=== PATIENT | male | born 1945 | race Native Hawaiian/Other Pacific Islander ===

== ENCOUNTER 2016-10-29 10:56 | Outpatient (CLI) | payer OTHER ==
[~2016-10-29 10:56] MED LIST: AMLO2.5T PO; DIGOXIN0.25 MG PO; EAC PO; LORAZEPAM1 MG PO; LORTAB PO; NEXIUM40 M1 PO; SUCR1SUS PO; TRAZ50TA36 PO
== END 2016-10-29 20:04 | disposition home or self-care (01) ==
LOC: RAD 10:56
DX: R06.02 Shortness of breath (principal)

== ENCOUNTER 2016-11-27 13:35 | Outpatient (CLI) | payer OTHER ==
[2016-11-27 15:11] LABS: PLATELET COUNT 187 K/uL (142-355)
[2016-11-27 16:09] LABS: POTASSIUM 3.9 mmol/L (3.6-5.2); SODIUM 137 mmol/L (136-145)
== END 2016-11-27 19:23 | disposition home or self-care (01) ==
LOC: LABW 13:35
PROVIDERS: Internal Medicine
DX: I48.91 Unspecified atrial fibrillation (principal); E78.2 Mixed hyperlipidemia; M79.1 Myalgia; Z12.5 Encounter for screening for malignant neoplasm of prostate; E78.00 Pure hypercholesterolemia, unspecified; R73.09 Other abnormal glucose
CPT/HCPCS: 36415; 80048; 80061; 80076; 80162; 82550; 84153; 84443; 85027

== ENCOUNTER 2016-12-17 10:42 | Outpatient (CLI) | payer OTHER | END 2016-12-17 19:21 | disposition home or self-care (01) | LOC: CT 10:42 | DX: R51 Headache (principal) ==

== ENCOUNTER 2016-12-31 11:13 | Outpatient (CLI) | payer OTHER | END 2016-12-31 12:13 | disposition home or self-care (01) | LOC: LABW 11:13 | DX: R10.84 Generalized abdominal pain (principal) | CPT/HCPCS: 87045; 87205; 87328; 87329; 87493; 87798; 87899 ==

== ENCOUNTER 2017-02-03 11:53 | Emergency (ER) | payer OTHER ==
[~2017-02-03] VITALS: Ht 180.3 cm; Wt 78.5 kg
[2017-02-03 12:33] LABS: PLATELET COUNT 180 K/uL (142-355)
[2017-02-03 12:39] LABS: POTASSIUM 4.3 mmol/L (3.6-5.2); SODIUM 139 mmol/L (136-145)
[2017-02-03 15:00] VITALS: BP 129/82; TEMP 97.7
== END 2017-02-03 14:57 | disposition home or self-care (01) ==
LOC: ED 11:53
DX: R42 Dizziness and giddiness (principal); I48.91 Unspecified atrial fibrillation; W01.10XA Fall on same level from slipping, tripping and stumbling with subsequent striking against unspecified object, initial encounter; Y92.89 Other specified places as the place of occurrence of the external cause
CPT/HCPCS: 36415; 80053; 85027; 93005; 99283

== ENCOUNTER 2017-02-17 21:00 | Emergency (ER) | payer OTHER ==
[~2017-02-17] VITALS: Ht 180.3 cm; Wt 78.5 kg
[2017-02-17 23:19] LABS: PLATELET COUNT 138 K/uL (142-355)
[2017-02-17 23:27] LABS: POTASSIUM 3.9 mmol/L (3.6-5.2); SODIUM 138 mmol/L (136-145)
[2017-02-18 00:06] VITALS: BP 138/88; TEMP 97.5
== END 2017-02-18 00:07 | disposition home or self-care (01) ==
LOC: ED 21:00
DX: K80.80 Other cholelithiasis without obstruction (principal); R10.84 Generalized abdominal pain
CPT/HCPCS: 36415; 80053; 82150; 83690; 85027; 99283

== ENCOUNTER 2017-03-13 07:49 | Outpatient (CLI) | payer OTHER | END 2017-03-13 19:03 | disposition home or self-care (01) | LOC: RAD 07:49 | DX: R13.14 Dysphagia, pharyngoesophageal phase (principal) ==

== ENCOUNTER 2017-03-15 10:00 | Outpatient (CLI) | payer OTHER | END 2017-03-15 11:00 | disposition home or self-care (01) | LOC: LABW 10:00 | DX: G25.0 Essential tremor (principal); G62.89 Other specified polyneuropathies | CPT/HCPCS: 82607; 84443; 85651; 86039 ==

== ENCOUNTER 2017-04-17 09:35 | Outpatient (CLI) | payer OTHER | END 2017-04-17 19:12 | disposition home or self-care (01) | LOC: CT 09:35 | DX: R07.0 Pain in throat (principal) ==

== ENCOUNTER 2017-05-31 08:45 | Outpatient (CLI) | payer OTHER | END 2017-05-31 10:00 | disposition home or self-care (01) | LOC: US 08:45 | DX: N28.89 Other specified disorders of kidney and ureter (principal); K80.80 Other cholelithiasis without obstruction ==

== ENCOUNTER 2017-09-05 13:22 | Emergency (ER) | payer OTHER ==
[~2017-09-05] VITALS: Ht 177.8 cm; Wt 83.5 kg
[2017-09-05 15:18] VITALS: BP 152/90; TEMP 98.1
== END 2017-09-05 15:19 | disposition home or self-care (01) ==
LOC: ED 13:22
DX: S80.02XA Contusion of left knee, initial encounter (principal); S50.02XA Contusion of left elbow, initial encounter; S43.492A Other sprain of left shoulder joint, initial encounter; W18.39XA Other fall on same level, initial encounter; Y92.89 Other specified places as the place of occurrence of the external cause
CPT/HCPCS: 99283

== ENCOUNTER 2017-09-09 20:42 | Emergency (ER) | payer OTHER ==
[~2017-09-09] VITALS: Ht 177.8 cm; Wt 83.9 kg
[2017-09-09 22:36] VITALS: BP 168/90; TEMP 97.8
== END 2017-09-09 22:37 | disposition home or self-care (01) ==
LOC: ED 20:42
DX: I48.91 Unspecified atrial fibrillation (principal); I63.9 Cerebral infarction, unspecified; I10 Essential (primary) hypertension; I67.82 Cerebral ischemia; S60.512A Abrasion of left hand, initial encounter; S60.511A Abrasion of right hand, initial encounter; W18.39XA Other fall on same level, initial encounter; Y92.89 Other specified places as the place of occurrence of the external cause
CPT/HCPCS: 99282

== ENCOUNTER 2017-09-10 15:35 | Outpatient (CLI) | payer OTHER | END 2017-09-10 21:43 | disposition home or self-care (01) | LOC: LABW 15:35 | DX: N40.0 Benign prostatic hyperplasia without lower urinary tract symptoms (principal) | CPT/HCPCS: 36415; 84153 ==

== ENCOUNTER 2018-01-02 08:32 | Outpatient (CLI) | payer OTHER ==
[2018-01-02 09:56] LABS: POTASSIUM 4.2 mmol/L (3.6-5.2)
== END 2018-01-02 22:45 | disposition home or self-care (01) ==
LOC: LABW 08:32
PROVIDERS: Internal Medicine Cardiovascular Disease
DX: I10 Essential (primary) hypertension (principal); I50.9 Heart failure, unspecified; I48.2 Chronic atrial fibrillation
CPT/HCPCS: 36415; 80048; 80061; 83880; 84436; 84443; 84479

== ENCOUNTER 2018-02-03 09:17 | Outpatient (CLI) | payer OTHER | END 2018-02-03 18:52 | disposition home or self-care (01) | LOC: US 09:17 | DX: K80.80 Other cholelithiasis without obstruction (principal) ==

== ENCOUNTER 2018-02-05 14:53 | Outpatient (CLI) | payer OTHER | END 2018-02-05 21:33 | disposition home or self-care (01) | LOC: RESP 14:53 | DX: G40.409 Other generalized epilepsy and epileptic syndromes, not intractable, without status epilepticus (principal) ==

== ENCOUNTER 2018-03-29 14:59 | Outpatient (CLI) | payer OTHER ==
[~2018-03-29] VITALS: Ht 180.3 cm; Wt 81.6 kg
== END 2018-03-29 19:05 | disposition home or self-care (01) ==
LOC: INF 14:59
DX: J02.0 Streptococcal pharyngitis (principal)
CPT/HCPCS: 96372; J0696

== ENCOUNTER 2018-04-03 10:22 | Outpatient (CLI) | payer OTHER | END 2018-04-03 19:37 | disposition home or self-care (01) | LOC: RESP 10:22 | DX: R06.09 Other forms of dyspnea (principal) ==

== ENCOUNTER 2018-05-22 08:20 | Outpatient (CLI) | payer OTHER | END 2018-05-22 19:29 | disposition home or self-care (01) | LOC: NM 08:20 | DX: K56.3 Gallstone ileus (principal) | CPT/HCPCS: A9537 ==

== ENCOUNTER 2018-05-27 16:07 | Emergency (ER) | payer OTHER ==
[~2018-05-27] VITALS: Ht 180.3 cm; Wt 81.6 kg
[2018-05-27 16:52] LABS: PLATELET COUNT 157 K/uL (142-355)
[2018-05-27 17:06] LABS: POTASSIUM 4.2 mmol/L (3.6-5.2); SODIUM 141 mmol/L (136-145)
[2018-05-27 19:50] VITALS: BP 139/68; TEMP 97.7
== END 2018-05-27 20:08 | disposition home or self-care (01) ==
LOC: ED 16:07
PROVIDERS: Emergency Medicine
DX: R07.89 Other chest pain (principal); K21.9 Gastro-esophageal reflux disease without esophagitis
CPT/HCPCS: 36415; 80053; 82550; 82553; 84484; 85027; 93005; 99283

== ENCOUNTER 2018-06-09 10:37 | Outpatient (CLI) | payer OTHER | END 2018-06-09 23:22 | disposition home or self-care (01) | LOC: CT 10:37 | DX: R31.0 Gross hematuria (principal) ==

== ENCOUNTER → 2018-06-13 15:25 | Outpatient (CLI) | payer OTHER ==
[~2018-06-13 15:25] MED LIST changes: +ATIVAN2 M1 PO; +LEXAPRO10 MG PO; +LISI5TAB10 PO; +OMEP40CA PO
== END | disposition home or self-care (01) ==
LOC: AMB 15:25
DX: R50.9 Fever, unspecified (principal)

== ENCOUNTER 2018-06-13 15:52 | Inpatient (IN) | payer OTHER ==
[~2018-06-13] VITALS: Ht 177.8 cm; Wt 85.4 kg
[~2018-06-13 15:52] MED LIST changes: -ATIVAN2 M1 PO; -LEXAPRO10 MG PO; -LISI5TAB10 PO; -OMEP40CA PO
[2018-06-13 15:57] VITALS: BP 141/78; TEMP 102.8
[2018-06-13 17:18] LABS: PLATELET COUNT 162 K/uL (142-355)
[2018-06-13 17:27] LABS: POTASSIUM 3.9 mmol/L (3.6-5.2); SODIUM 137 mmol/L (136-145)
[2018-06-13 18:21] VITALS: TEMP 99.9
[2018-06-13 20:11] VITALS: BP 168/66; TEMP 98.8
[2018-06-13] MEDS ORDERED: LISI5TAB10 PO (20:21)
[2018-06-13] MEDS ORDERED: ATIVAN2 M1 PO (20:22)
[2018-06-13 21:55] VITALS: BP 168/66; TEMP 98.8; Ht 177.8 cm; Wt 85.4 kg
[2018-06-14] VITALS (7 sets, daily range): BP systolic 112–160; BP diastolic 65–82; TEMP 97.7–101.4
[2018-06-14 04:36] LABS: PLATELET COUNT 150 K/uL (142-355)
[2018-06-14 05:01] LABS: POTASSIUM 3.8 mmol/L (3.6-5.2)
[2018-06-15 04:00] VITALS: BP 145/91; TEMP 99.4
[2018-06-15 05:40] LABS: PLATELET COUNT 131 K/uL (142-355)
[2018-06-15 05:55] LABS: POTASSIUM 3.6 mmol/L (3.6-5.2)
[2018-06-15 07:58] VITALS: BP 142/81; TEMP 99
[2018-06-15 11:44] VITALS: BP 145/79; TEMP 99
[2018-06-15 16:00] VITALS: BP 146/77; TEMP 99.1
[2018-06-15 20:00] VITALS: BP 156/77; TEMP 100.7
[2018-06-16 00:16] VITALS: BP 145/76; TEMP 97.4
[2018-06-16 04:00] VITALS: BP 136/76; TEMP 98
[2018-06-16 05:41] LABS: PLATELET COUNT 110 K/uL (142-355)
[2018-06-16 06:01] LABS: POTASSIUM 3.6 mmol/L (3.6-5.2)
[2018-06-16 08:00] VITALS: BP 146/80; TEMP 98.3
[2018-06-16 12:00] VITALS: BP 141/87; TEMP 98
[2018-06-16 16:00] VITALS: BP 147/84; TEMP 98.1
[2018-06-16 20:00] VITALS: BP 144/81; TEMP 98.9
[2018-06-17] VITALS: BP 151/91; TEMP 98.5
[2018-06-17 04:00] VITALS: BP 136/84; TEMP 98
[2018-06-17 08:00] VITALS: BP 152/87; TEMP 98.4
[2018-06-17 08:59] LABS: PLATELET COUNT 142 K/uL (142-355)
[2018-06-17 12:00] VITALS: BP 141/81; TEMP 98.2
[2018-06-17 16:00] VITALS: BP 155/86; TEMP 98.4
[2018-06-18] VITALS: BP 142/86; TEMP 98.7
[2018-06-18 04:00] VITALS: BP 145/90; TEMP 98.4
[2018-06-18 07:00] VITALS: BP 143/80; TEMP 98.1
== END 2018-06-18 12:15 | disposition home or self-care (01) | DRG 988 ==
LOC: ED 15:52 → MED/SURG 18:50
PROVIDERS: Family Medicine; ADMIT Family Medicine
PROC: 0DB68ZZ Excision of Stomach, Via Natural or Artificial Opening Endoscopic (ICD-10-PCS; principal; 2018-06-10)
PROC: 0DB88ZZ Excision of Small Intestine, Via Natural or Artificial Opening Endoscopic (ICD-10-PCS; 2018-06-10)
DX: N99.89 Other postprocedural complications and disorders of genitourinary system (principal); N39.0 Urinary tract infection, site not specified; I85.00 Esophageal varices without bleeding; Y84.9 Medical procedure, unspecified as the cause of abnormal reaction of the patient, or of later complication, without mention of misadventure at the time of the procedure; Y92.89 Other specified places as the place of occurrence of the external cause; B96.1 Klebsiella pneumoniae [K. pneumoniae] as the cause of diseases classified elsewhere; R31.9 Hematuria, unspecified; R50.9 Fever, unspecified; R39.89 Other symptoms and signs involving the genitourinary system; I48.91 Unspecified atrial fibrillation; K21.9 Gastro-esophageal reflux disease without esophagitis; N40.0 Benign prostatic hyperplasia without lower urinary tract symptoms; K29.50 Unspecified chronic gastritis without bleeding; K44.9 Diaphragmatic hernia without obstruction or gangrene; K31.7 Polyp of stomach and duodenum; Z87.898 Personal history of other specified conditions; R13.19 Other dysphagia; Z87.19 Personal history of other diseases of the digestive system
CPT/HCPCS: 36415; 51702; 80048; 80053; 81000; 82550; 82553; 83605; 84484; 85027; 87040; 87077; 87086; 87088; 87186; 87205; 93005; 96360; 96372; 99284; J0696; J1644; J2001; J2250; J2704

== ENCOUNTER → 2018-06-18 20:14 | Outpatient (CLI) | payer OTHER ==
[~2018-06-18 20:14] MED LIST changes: +ATIVAN2 M1 PO; +LEXAPRO10 MG PO; +LISI5TAB10 PO; +OMEP40CA PO
== END | disposition home or self-care (01) ==
LOC: AMB 20:14
DX: R06.02 Shortness of breath (principal)

== ENCOUNTER 2018-07-30 05:39 | Emergency (ER) | payer OTHER ==
[~2018-07-30] VITALS: Ht 177.8 cm; Wt 79.4 kg
[~2018-07-30 05:39] MED LIST changes: -LEXAPRO10 MG PO; -OMEP40CA PO
[2018-07-30 05:48] VITALS: TEMP 97.9
[2018-07-30] MEDS ORDERED: LEXAPRO10 MG PO (05:59)
[2018-07-30] MEDS ORDERED: OMEP40CA PO (05:59)
[2018-07-30 07:18] LABS: PLATELET COUNT 185 K/uL (142-355)
[2018-07-30 07:44] LABS: POTASSIUM 4.3 mmol/L (3.6-5.2)
[2018-07-30 09:00] VITALS: BP 159/90
== END 2018-07-30 08:45 | disposition home or self-care (01) ==
LOC: ED 05:39
PROVIDERS: Internal Medicine
DX: R10.84 Generalized abdominal pain (principal)
CPT/HCPCS: 36415; 74022; 80053; 81000; 82150; 83690; 85027; 99283

== ENCOUNTER 2018-08-29 22:28 | Emergency (ER) | payer OTHER ==
[~2018-08-29] VITALS: Ht 177.8 cm; Wt 79.4 kg
[~2018-08-29 22:28] MED LIST changes: +LEXAPRO10 MG PO; +OMEP40CA PO
[2018-08-29 23:49] LABS: PLATELET COUNT 197 K/uL (142-355)
[2018-08-30 00:13] LABS: POTASSIUM 3.8 mmol/L (3.6-5.2)
[2018-08-30 02:57] VITALS: BP 154/83; TEMP 98.2
== END 2018-08-30 03:00 | disposition home or self-care (01) ==
LOC: ED 22:28
PROVIDERS: Internal Medicine
DX: R10.84 Generalized abdominal pain (principal); R19.7 Diarrhea, unspecified; K29.60 Other gastritis without bleeding; I48.91 Unspecified atrial fibrillation
CPT/HCPCS: 74022; 80053; 81000; 82150; 83690; 85027; 93005; 96372; 96374; 96375; 99284; J2270; J2405; J3490

== ENCOUNTER 2018-11-20 09:37 | Outpatient (CLI) | payer OTHER | END 2018-11-20 20:36 | disposition home or self-care (01) | LOC: US 09:37 | DX: N28.1 Cyst of kidney, acquired (principal) ==

== ENCOUNTER 2018-11-27 10:28 | Outpatient (CLI) | payer OTHER | END 2018-11-27 21:51 | disposition home or self-care (01) | LOC: LABW 10:28 | DX: N40.1 Benign prostatic hyperplasia with lower urinary tract symptoms (principal) | CPT/HCPCS: 36415; 84153 ==

== ENCOUNTER 2019-01-01 09:26 | Outpatient (CLI) | payer OTHER | END 2019-01-01 19:17 | disposition home or self-care (01) | LOC: CT 09:26 | DX: N20.0 Calculus of kidney (principal) ==

== ENCOUNTER 2019-03-02 08:13 | Outpatient (CLI) | payer OTHER | END 2019-03-02 19:10 | disposition home or self-care (01) | LOC: LABW 08:13 | DX: R19.7 Diarrhea, unspecified (principal) | CPT/HCPCS: 82272; 87015; 87045; 87328; 87329; 87899 ==

== ENCOUNTER 2019-06-09 11:36 | Outpatient (CLI) | payer OTHER ==
[2019-06-09 12:08] LABS: PLATELET COUNT 169 K/uL (142-355)
[2019-06-09 12:21] LABS: POTASSIUM 4.3 mmol/L (3.6-5.2)
[2019-06-09 17:08] LABS: PARTIAL THROMBOPLASTIN TIME 24.5 SECONDS (24.5-33.6)
== END 2019-06-09 20:17 | disposition home or self-care (01) ==
LOC: RESP 11:36
PROVIDERS: Student in an Organized Health Care Education/Training Program
DX: Z01.810 Encounter for preprocedural cardiovascular examination (principal); Z01.811 Encounter for preprocedural respiratory examination; Z01.812 Encounter for preprocedural laboratory examination; Z79.899 Other long term (current) drug therapy; I48.91 Unspecified atrial fibrillation
CPT/HCPCS: 36415; 80053; 85027; 85610; 85730; 93005

== ENCOUNTER 2019-06-13 10:18 | Emergency (ER) | payer OTHER ==
[~2019-06-13] VITALS: Ht 180.3 cm; Wt 78.0 kg
[2019-06-13 10:31] VITALS: BP 143/80; TEMP 98.1
[2019-06-13 11:31] LABS: PLATELET COUNT 172 K/uL (142-355)
[2019-06-13 11:35] LABS: POTASSIUM 4.3 mmol/L (3.6-5.2)
== END 2019-06-13 11:55 | disposition home or self-care (01) ==
LOC: ED 10:18
PROVIDERS: Emergency Medicine
DX: R35.0 Frequency of micturition (principal)
CPT/HCPCS: 80053; 81000; 85027; 99283

== ENCOUNTER 2019-06-23 10:01 | Outpatient (CLI) | payer OTHER | END 2019-06-23 19:49 | disposition home or self-care (01) | LOC: CT 10:01 | DX: R51 Headache (principal) ==

== ENCOUNTER 2019-07-06 09:05 | Outpatient (CLI) | payer OTHER | END 2019-07-06 22:10 | disposition home or self-care (01) | LOC: LABW 09:05 | PROVIDERS: Internal Medicine | DX: E78.2 Mixed hyperlipidemia (principal); E03.0 Congenital hypothyroidism with diffuse goiter | CPT/HCPCS: 36415; 80061; 84439; 84443 ==

== ENCOUNTER 2019-08-07 09:40 | Emergency (ER) | payer OTHER ==
[~2019-08-07] VITALS: Ht 180.3 cm; Wt 79.4 kg
[2019-08-07 09:57] VITALS: TEMP 98.1
[2019-08-07 11:18] VITALS: BP 136/82
== END 2019-08-07 11:18 | disposition home or self-care (01) ==
LOC: ED 09:40
DX: G25.0 Essential tremor (principal); F41.8 Other specified anxiety disorders; I48.91 Unspecified atrial fibrillation
CPT/HCPCS: 93005; 99282

== ENCOUNTER 2019-09-20 11:22 | Emergency (ER) | payer OTHER ==
[~2019-09-20] VITALS: Ht 180.3 cm; Wt 79.4 kg
[2019-09-20 12:39] VITALS: BP 169/71; TEMP 98.2
== END 2019-09-20 12:41 | disposition home or self-care (01) ==
LOC: ED 11:22
DX: J06.9 Acute upper respiratory infection, unspecified (principal); B34.9 Viral infection, unspecified; I48.91 Unspecified atrial fibrillation
CPT/HCPCS: 87502; 87651; 93005; 99283

== ENCOUNTER 2019-09-28 08:12 | Outpatient (CLI) | payer OTHER | END 2019-09-28 21:39 | disposition home or self-care (01) | LOC: US 08:12 | DX: I73.89 Other specified peripheral vascular diseases (principal) ==

== ENCOUNTER 2019-10-01 14:29 | Outpatient (CLI) | payer OTHER | END 2019-10-01 19:32 | disposition home or self-care (01) | LOC: LABW 14:29 | DX: I48.91 Unspecified atrial fibrillation (principal); Z51.81 Encounter for therapeutic drug level monitoring | CPT/HCPCS: 36415; 80162 ==

== ENCOUNTER 2020-01-14 10:19 | Outpatient (CLI) | payer OTHER | END 2020-01-14 19:12 | disposition home or self-care (01) | LOC: RAD 10:19 | DX: M25.552 Pain in left hip (principal); M25.562 Pain in left knee ==

== ENCOUNTER 2020-03-09 15:27 | Emergency (ER) | payer OTHER ==
[~2020-03-09] VITALS: Ht 180.3 cm; Wt 79.4 kg
[2020-03-09 18:15] LABS: PLATELET COUNT 177 K/uL (142-355)
[2020-03-09 18:20] LABS: POTASSIUM 4.5 mmol/L (3.6-5.2)
[2020-03-09 18:54] VITALS: BP 125/70; TEMP 99
== END 2020-03-09 18:54 | disposition home or self-care (01) ==
LOC: ED 15:27
PROVIDERS: Emergency Medicine
DX: F41.8 Other specified anxiety disorders (principal); R07.89 Other chest pain
CPT/HCPCS: 80053; 82550; 82553; 84484; 85027; 93005; 99283

== ENCOUNTER 2020-03-12 19:38 | Emergency (ER) | payer OTHER ==
[~2020-03-12] VITALS: Ht 180.3 cm; Wt 79.8 kg
[2020-03-12 21:03] LABS: PLATELET COUNT 169 K/uL (142-355)
[2020-03-12 21:29] LABS: POTASSIUM 4.2 mmol/L (3.6-5.2); SODIUM 139 mmol/L (136-145)
[2020-03-12 22:10] VITALS: BP 149/86; TEMP 98.1
== END 2020-03-12 22:10 | disposition home or self-care (01) ==
LOC: ED 19:38
PROVIDERS: Emergency Medicine
DX: I10 Essential (primary) hypertension (principal); F41.8 Other specified anxiety disorders; R07.89 Other chest pain; R42 Dizziness and giddiness
CPT/HCPCS: 80053; 81000; 82550; 82553; 84484; 85027; 93005; 99283

== ENCOUNTER 2020-05-03 09:19 | Outpatient (CLI) | payer OTHER | END 2020-05-03 23:18 | disposition home or self-care (01) | LOC: LABW 09:19 | DX: I48.91 Unspecified atrial fibrillation (principal); M10.09 Idiopathic gout, multiple sites | CPT/HCPCS: 36415; 80162; 84550 ==

== ENCOUNTER 2020-05-26 19:11 | Emergency (ER) | payer OTHER ==
[~2020-05-26] VITALS: Ht 180.3 cm; Wt 78.0 kg
[2020-05-26 20:15] VITALS: TEMP 98.9
[2020-05-26 20:39] LABS: PLATELET COUNT 153 K/uL (142-355)
[2020-05-26 20:47] LABS: POTASSIUM 4.5 mmol/L (3.6-5.2); SODIUM 139 mmol/L (136-145)
[2020-05-26 21:25] VITALS: BP 130/91
== END 2020-05-26 21:26 | disposition home or self-care (01) ==
LOC: ED 19:11
DX: R07.89 Other chest pain (principal); L08.89 Other specified local infections of the skin and subcutaneous tissue; I48.91 Unspecified atrial fibrillation
CPT/HCPCS: 36415; 80053; 84484; 85027; 93005; 99283

== ENCOUNTER 2020-06-01 07:56 | Outpatient (CLI) | payer OTHER ==
[2020-06-01 08:27] LABS: PLATELET COUNT 148 K/uL (142-355)
[2020-06-01 09:05] LABS: POTASSIUM 4.1 mmol/L (3.6-5.2)
== END 2020-06-01 23:54 | disposition home or self-care (01) ==
LOC: LABW 07:56
PROVIDERS: Internal Medicine
DX: I11.0 Hypertensive heart disease with heart failure (principal); M62.81 Muscle weakness (generalized); E78.2 Mixed hyperlipidemia; Z79.899 Other long term (current) drug therapy; I48.20 Chronic atrial fibrillation, unspecified; R35.0 Frequency of micturition; Z51.81 Encounter for therapeutic drug level monitoring
CPT/HCPCS: 36415; 80048; 80061; 80076; 80162; 81000; 82550; 84439; 84443; 85027

== ENCOUNTER 2020-06-13 08:29 | Outpatient (CLI) | payer OTHER | END 2020-06-13 19:12 | disposition home or self-care (01) | LOC: LABW 08:29 | DX: I48.20 Chronic atrial fibrillation, unspecified (principal); Z79.899 Other long term (current) drug therapy | CPT/HCPCS: 36415; 80162 ==

== ENCOUNTER 2020-06-30 10:16 | Outpatient (CLI) | payer OTHER | END 2020-06-30 20:04 | disposition home or self-care (01) | LOC: US 10:16 | DX: R31.0 Gross hematuria (principal) ==

== ENCOUNTER 2020-07-03 18:06 | Emergency (ER) | payer OTHER ==
[~2020-07-03] VITALS: Ht 180.3 cm; Wt 78.0 kg
[2020-07-03 20:10] VITALS: BP 131/80; TEMP 97.8
== END 2020-07-03 20:10 | disposition home or self-care (01) ==
LOC: ED 18:06
DX: J02.0 Streptococcal pharyngitis (principal); Z79.2 Long term (current) use of antibiotics
CPT/HCPCS: 87651; 96372; 99282; J0696

== ENCOUNTER 2020-08-02 19:50 | Emergency (ER) | payer OTHER ==
[~2020-08-02] VITALS: Ht 180.3 cm; Wt 78.0 kg
[2020-08-02 21:50] VITALS: BP 136/74; TEMP 98.5
== END 2020-08-02 21:51 | disposition home or self-care (01) ==
LOC: ED 19:50
DX: F41.8 Other specified anxiety disorders (principal)
CPT/HCPCS: 93005; 99282; 99283

== ENCOUNTER 2020-08-14 15:28 | Outpatient (CLI) | payer OTHER | END 2020-08-14 20:36 | disposition home or self-care (01) | LOC: LABW 15:28 | PROVIDERS: ATTEND Internal Medicine | DX: Z12.5 Encounter for screening for malignant neoplasm of prostate (principal); K81.0 Acute cholecystitis; I48.91 Unspecified atrial fibrillation | CPT/HCPCS: 36415; 80162; 84153 ==

== ENCOUNTER 2020-08-22 08:22 | Outpatient (CLI) | payer OTHER | END 2020-08-22 19:03 | disposition home or self-care (01) | LOC: NM 08:22 | PROVIDERS: ATTEND Internal Medicine | DX: R10.11 Right upper quadrant pain (principal); K81.0 Acute cholecystitis | CPT/HCPCS: A9537 ==

== ENCOUNTER 2020-09-01 10:58 | Outpatient (CLI) | payer OTHER | END 2020-09-01 19:02 | disposition home or self-care (01) | LOC: US 10:58 | PROVIDERS: ATTEND Internal Medicine | DX: I26.99 Other pulmonary embolism without acute cor pulmonale (principal); I48.21 Permanent atrial fibrillation; M79.661 Pain in right lower leg; M79.662 Pain in left lower leg ==

== ENCOUNTER 2020-10-20 16:22 | Outpatient (CLI) | payer OTHER | END 2020-10-20 20:51 | disposition home or self-care (01) | LOC: LAB 16:22 | PROVIDERS: ATTEND Internal Medicine | DX: I80.3 Phlebitis and thrombophlebitis of lower extremities, unspecified (principal) | CPT/HCPCS: 36415; 85379 ==

== ENCOUNTER 2021-01-20 09:25 | Outpatient (CLI) | payer OTHER | END 2021-01-20 20:53 | disposition home or self-care (01) | LOC: US 09:25 | PROVIDERS: ATTEND Specialist | DX: N20.0 Calculus of kidney (principal) ==

== ENCOUNTER 2021-02-11 14:45 | Emergency (ER) | payer OTHER ==
[~2021-02-11] VITALS: Ht 180.3 cm; Wt 81.6 kg
[2021-02-11 14:55] VITALS: BP 140/78; TEMP 98.5
[2021-02-11 15:35] LABS: PLATELET COUNT 145 K/uL (142-355)
[2021-02-11 15:51] LABS: POTASSIUM 4.1 mmol/L (3.6-5.2)
== END 2021-02-11 17:12 | disposition home or self-care (01) ==
LOC: ED 14:45
PROVIDERS: Emergency Medicine Emergency Medical Services
DX: S00.03XA Contusion of scalp, initial encounter (principal); S16.1XXA Strain of muscle, fascia and tendon at neck level, initial encounter; S39.012A Strain of muscle, fascia and tendon of lower back, initial encounter; W07.XXXA Fall from chair, initial encounter; Y92.89 Other specified places as the place of occurrence of the external cause
CPT/HCPCS: 80048; 80162; 81000; 85027; 99283

== ENCOUNTER 2021-04-02 12:28 | Emergency (ER) | payer OTHER ==
[~2021-04-02] VITALS: Ht 180.3 cm; Wt 81.6 kg
[2021-04-02 12:35] VITALS: TEMP 97.7
[2021-04-02 13:21] LABS: PLATELET COUNT 174 K/uL (142-355)
[2021-04-02 13:24] LABS: SODIUM 141 mmol/L (136-145)
[2021-04-02 13:28] LABS: POTASSIUM 5.3 mmol/L (3.6-5.2)
[2021-04-02 14:35] VITALS: BP 146/80
[2021-04-02 16:25] LABS: PARTIAL THROMBOPLASTIN TIME 24.4 SECONDS (24.5-33.6)
== END 2021-04-02 14:37 | disposition home or self-care (01) ==
LOC: ED 12:28
PROVIDERS: Hospitalist
DX: R42 Dizziness and giddiness (principal); I48.20 Chronic atrial fibrillation, unspecified; W11.XXXA Fall on and from ladder, initial encounter; Y92.89 Other specified places as the place of occurrence of the external cause
CPT/HCPCS: 80053; 80162; 80320; 81000; 82550; 83880; 84484; 85027; 85610; 85730; 93005; 99283

== ENCOUNTER 2021-04-25 08:22 | Outpatient (CLI) | payer OTHER | END 2021-04-25 20:33 | disposition home or self-care (01) | LOC: CT 08:22 | PROVIDERS: ATTEND Family Medicine | DX: Z86.711 Personal history of pulmonary embolism (principal) | CPT/HCPCS: 36415; 82565; 84520; Q9963 ==

== ENCOUNTER 2021-05-24 07:55 | Outpatient (CLI) | payer OTHER ==
[2021-05-24 08:39] LABS: PLATELET COUNT 143 K/uL (142-355)
== END 2021-05-24 19:03 | disposition home or self-care (01) ==
LOC: LABW 07:55
PROVIDERS: ATTEND Obstetrics & Gynecology Obstetrics
DX: F41.9 Anxiety disorder, unspecified (principal); I48.91 Unspecified atrial fibrillation; E88.81 Metabolic syndrome and other insulin resistance; Z79.899 Other long term (current) drug therapy
CPT/HCPCS: 36415; 80053; 80061; 82525; 82670; 83525; 84403; 84630; 85027

== ENCOUNTER 2021-06-02 14:40 | Outpatient (CLI) | payer OTHER | END 2021-06-02 20:17 | disposition home or self-care (01) | LOC: US 14:40 | PROVIDERS: ATTEND Nurse Practitioner Family | DX: F41.8 Other specified anxiety disorders (principal); R35.0 Frequency of micturition; I65.21 Occlusion and stenosis of right carotid artery; I27.20 Pulmonary hypertension, unspecified | CPT/HCPCS: 81000; 87086; 87088 ==

== ENCOUNTER 2021-07-06 10:03 | Emergency (ER) | payer OTHER ==
[~2021-07-06] VITALS: Ht 180.3 cm; Wt 77.6 kg
[2021-07-06 11:12] VITALS: BP 130/88; TEMP 97.8
== END 2021-07-06 11:12 | disposition home or self-care (01) ==
LOC: ED 10:03
DX: H92.02 Otalgia, left ear (principal); R68.84 Jaw pain; Z98.818 Other dental procedure status; K02.9 Dental caries, unspecified
CPT/HCPCS: 96372; 99283; J0696; J1885

== ENCOUNTER 2021-08-01 08:42 | Emergency (ER) | payer OTHER ==
[~2021-08-01] VITALS: Ht 180.3 cm; Wt 77.6 kg
[2021-08-01 11:15] VITALS: BP 139/72; TEMP 97.5
== END 2021-08-01 11:15 | disposition home or self-care (01) ==
LOC: ED 08:42
DX: S09.8XXA Other specified injuries of head, initial encounter (principal); S00.01XA Abrasion of scalp, initial encounter; W22.8XXA Striking against or struck by other objects, initial encounter; Y92.89 Other specified places as the place of occurrence of the external cause
CPT/HCPCS: 99283

== ENCOUNTER 2021-09-28 20:48 | Emergency (ER) | payer OTHER ==
[~2021-09-28] VITALS: Ht 180.3 cm; Wt 79.4 kg
[2021-09-28 21:34] LABS: PLATELET COUNT 130 K/uL (142-355)
[2021-09-28 21:39] LABS: POTASSIUM 4.5 mmol/L (3.6-5.2)
[2021-09-28 22:11] VITALS: BP 128/64; TEMP 98.2
== END 2021-09-28 22:11 | disposition home or self-care (01) ==
LOC: ED 20:48
PROVIDERS: Emergency Medicine
DX: I48.91 Unspecified atrial fibrillation (principal); F41.8 Other specified anxiety disorders; Z79.01 Long term (current) use of anticoagulants
CPT/HCPCS: 36415; 80048; 84484; 85027; 93005; 99283

== ENCOUNTER 2021-10-02 09:41 | Outpatient (CLI) | payer OTHER | END 2021-10-02 18:50 | disposition home or self-care (01) | LOC: US 09:41 | PROVIDERS: ATTEND Family Medicine | DX: R09.89 Other specified symptoms and signs involving the circulatory and respiratory systems (principal); Z13.6 Encounter for screening for cardiovascular disorders; I10 Essential (primary) hypertension; I48.0 Paroxysmal atrial fibrillation; F41.1 Generalized anxiety disorder; I34.0 Nonrheumatic mitral (valve) insufficiency ==

== ENCOUNTER 2021-10-04 07:45 | Outpatient (CLI) | payer OTHER ==
[2021-10-04 08:09] LABS: PLATELET COUNT 137 K/uL (142-355)
[2021-10-04 08:30] LABS: POTASSIUM 4.1 mmol/L (3.6-5.2)
== END 2021-10-04 19:54 | disposition home or self-care (01) ==
LOC: LABW 07:45
PROVIDERS: ATTEND Family Medicine
DX: I10 Essential (primary) hypertension (principal); K21.9 Gastro-esophageal reflux disease without esophagitis; F41.1 Generalized anxiety disorder; I34.0 Nonrheumatic mitral (valve) insufficiency; E55.9 Vitamin D deficiency, unspecified
CPT/HCPCS: 36415; 80053; 80061; 81000; 82306; 83036; 84439; 84443; 85027

== ENCOUNTER 2021-11-07 10:24 | Outpatient (CLI) | payer OTHER | END 2021-11-07 19:19 | disposition home or self-care (01) | LOC: CT 10:24 | PROVIDERS: ATTEND Specialist | DX: N20.0 Calculus of kidney (principal) ==

== ENCOUNTER 2021-11-30 20:37 | Emergency (ER) | payer OTHER ==
[~2021-11-30] VITALS: Ht 180.3 cm; Wt 79.4 kg
[2021-11-30 21:22] LABS: PLATELET COUNT 113 K/uL (142-355)
[2021-11-30 21:27] LABS: POTASSIUM 3.8 mmol/L (3.6-5.2)
[2021-11-30 21:57] VITALS: BP 150/65; TEMP 99
== END 2021-11-30 21:57 | disposition home or self-care (01) ==
LOC: ED 20:37
PROVIDERS: Emergency Medicine
DX: I48.20 Chronic atrial fibrillation, unspecified (principal); Z79.01 Long term (current) use of anticoagulants; F41.8 Other specified anxiety disorders; N39.0 Urinary tract infection, site not specified; R50.9 Fever, unspecified
CPT/HCPCS: 36415; 80048; 85027; 93005; 99283

== ENCOUNTER 2022-02-27 22:51 | Emergency (ER) | payer OTHER ==
[~2022-02-27] VITALS: Ht 180.3 cm; Wt 79.4 kg
[2022-02-27 23:38] LABS: PLATELET COUNT 130 K/uL (142-355)
[2022-02-28 00:16] VITALS: BP 145/72; TEMP 97.7
== END 2022-02-28 00:16 | disposition home or self-care (01) ==
LOC: ED 22:51
PROVIDERS: Emergency Medicine Emergency Medical Services
DX: F41.8 Other specified anxiety disorders (principal)
CPT/HCPCS: 36415; 80048; 83735; 84484; 85027; 93005; 99283

== ENCOUNTER 2022-04-23 12:44 | Outpatient (CLI) | payer OTHER ==
[2022-04-23 13:19] LABS: PLATELET COUNT 162 K/uL (142-355)
[2022-04-23 13:23] LABS: POTASSIUM 4.6 mmol/L (3.6-5.2)
== END 2022-04-23 19:12 | disposition home or self-care (01) ==
LOC: CT 12:44
PROVIDERS: ATTEND Family Medicine
DX: R10.9 Unspecified abdominal pain (principal); R11.0 Nausea; R19.7 Diarrhea, unspecified
CPT/HCPCS: 80053; 81002; 81015; 82272; 83630; 83690; 85027; 87015; 87045; 87088; 87324; 87328; 87329; 87449; 87899

== ENCOUNTER 2022-04-24 09:58 | Outpatient (CLI) | payer OTHER | END 2022-04-24 19:10 | disposition home or self-care (01) | LOC: CT 09:58 | PROVIDERS: ATTEND Family Medicine | DX: R10.84 Generalized abdominal pain (principal); R11.0 Nausea; R19.7 Diarrhea, unspecified ==

== ENCOUNTER 2022-04-30 09:58 | Outpatient (CLI) | payer OTHER | END 2022-04-30 18:57 | disposition home or self-care (01) | LOC: US 09:58 | PROVIDERS: ATTEND Surgery | DX: R10.11 Right upper quadrant pain (principal) ==

== ENCOUNTER 2022-05-03 01:32 | Emergency (ER) | payer OTHER ==
[~2022-05-03] VITALS: Ht 180.3 cm; Wt 79.4 kg
[2022-05-03 01:40] VITALS: BP 149/55; TEMP 99.6
[2022-05-03 02:38] LABS: PLATELET COUNT 120 K/uL (142-355)
[2022-05-03 02:43] LABS: POTASSIUM 3.6 mmol/L (3.6-5.2)
== END 2022-05-03 03:47 | disposition home or self-care (01) ==
LOC: ED 01:32
PROVIDERS: Emergency Medicine Emergency Medical Services
DX: G25.0 Essential tremor (principal)
CPT/HCPCS: 36415; 80048; 81002; 83735; 84484; 85027; 93005; 99282

== ENCOUNTER 2022-05-21 10:12 | Outpatient (CLI) | payer OTHER | END 2022-05-21 18:50 | disposition home or self-care (01) | LOC: MRI 10:12 | PROVIDERS: ATTEND Physician Assistant | DX: M51.36 Other intervertebral disc degeneration, lumbar region (principal) ==

== ENCOUNTER 2022-05-28 10:07 | Outpatient (CLI) | payer OTHER ==
[2022-05-28 10:52] LABS: PLATELET COUNT 169 K/uL (142-355)
[2022-05-28 10:59] LABS: POTASSIUM 4.2 mmol/L (3.6-5.2)
== END 2022-05-28 19:50 | disposition home or self-care (01) ==
LOC: LABW 10:07
PROVIDERS: ATTEND Nurse Practitioner Family
DX: R06.09 Other forms of dyspnea (principal)
CPT/HCPCS: 36415; 80053; 85027

== ENCOUNTER 2022-06-05 16:04 | Outpatient (CLI) | payer OTHER | END 2022-06-05 18:54 | disposition home or self-care (01) | LOC: RAD 16:04 | PROVIDERS: ATTEND Nurse Practitioner Family | DX: J18.9 Pneumonia, unspecified organism (principal) ==

== ENCOUNTER 2022-06-07 08:17 | Outpatient (CLI) | payer OTHER | END 2022-06-07 20:54 | disposition home or self-care (01) | LOC: US 08:17 | PROVIDERS: ATTEND Nurse Practitioner Family | DX: R10.9 Unspecified abdominal pain (principal) ==

== ENCOUNTER 2022-07-05 10:31 | Outpatient (CLI) | payer OTHER | END 2022-07-05 19:11 | disposition home or self-care (01) | LOC: RAD 10:31 | PROVIDERS: ATTEND Nurse Practitioner Family | DX: M54.6 Pain in thoracic spine (principal); R10.9 Unspecified abdominal pain ==

== ENCOUNTER 2022-07-16 09:23 | Outpatient (CLI) | payer OTHER ==
[2022-07-16 10:15] LABS: PLATELET COUNT 199 K/uL (142-355)
[2022-07-16 10:27] LABS: POTASSIUM 3.3 mmol/L (3.6-5.2)
== END 2022-07-16 20:42 | disposition home or self-care (01) ==
LOC: LABW 09:23
PROVIDERS: ATTEND Nurse Practitioner Family
DX: R07.81 Pleurodynia (principal); R05.1 Acute cough; N39.0 Urinary tract infection, site not specified
CPT/HCPCS: 36415; 80053; 83880; 85027; 85379

== ENCOUNTER 2022-07-23 08:56 | Outpatient (CLI) | payer OTHER | END 2022-07-23 18:56 | disposition home or self-care (01) | LOC: CT 08:56 | PROVIDERS: ATTEND Nurse Practitioner Family | DX: J98.11 Atelectasis (principal); R31.9 Hematuria, unspecified; R07.81 Pleurodynia | CPT/HCPCS: Q9963 ==

== ENCOUNTER 2022-08-03 13:51 | Outpatient (CLI) | payer OTHER | END 2022-08-03 19:08 | disposition home or self-care (01) | LOC: CT 13:51 | PROVIDERS: ATTEND Nurse Practitioner Family | DX: R41.0 Disorientation, unspecified (principal) ==

== ENCOUNTER 2022-08-08 09:35 | Outpatient (CLI) | payer OTHER ==
[2022-08-08 10:22] LABS: PLATELET COUNT 148 K/uL (142-355)
[2022-08-08 10:27] LABS: POTASSIUM 3.8 mmol/L (3.6-5.2)
== END 2022-08-08 19:10 | disposition home or self-care (01) ==
LOC: LABW 09:35
PROVIDERS: ATTEND Nurse Practitioner Family
DX: R79.89 Other specified abnormal findings of blood chemistry (principal); R53.83 Other fatigue; Z13.220 Encounter for screening for lipoid disorders
CPT/HCPCS: 36415; 80053; 83704; 85027

== ENCOUNTER 2022-08-10 19:54 | Emergency (ER) | payer OTHER ==
[~2022-08-10] VITALS: Ht 177.8 cm; Wt 75.3 kg
[2022-08-10 21:58] VITALS: BP 132/71; TEMP 97.7
== END 2022-08-10 21:58 | disposition home or self-care (01) ==
LOC: ED 19:54
DX: F41.8 Other specified anxiety disorders (principal); I10 Essential (primary) hypertension
CPT/HCPCS: 93005; 99283

== ENCOUNTER 2022-08-17 20:29 | Emergency (ER) | payer OTHER ==
[~2022-08-17] VITALS: Ht 177.8 cm; Wt 75.3 kg
[2022-08-17 20:30] VITALS: TEMP 98.9
[2022-08-17 21:34] LABS: PLATELET COUNT 146 K/uL (142-355)
[2022-08-17 21:40] LABS: POTASSIUM 3.9 mmol/L (3.6-5.2)
[2022-08-17 21:50] LABS: PARTIAL THROMBOPLASTIN TIME 25.9 SECONDS (24.5-33.6)
[2022-08-17 22:50] VITALS: BP 168/72
== END 2022-08-17 22:50 | disposition home or self-care (01) ==
LOC: ED 20:29
PROVIDERS: Family Medicine
DX: F32.A Depression, unspecified (principal); R07.89 Other chest pain; F41.8 Other specified anxiety disorders
CPT/HCPCS: 36415; 80053; 82550; 84484; 85027; 85610; 85730; 93005; 99283

== ENCOUNTER 2022-09-13 19:12 | Emergency (ER) | payer OTHER ==
[~2022-09-13] VITALS: Ht 177.8 cm; Wt 76.7 kg
[2022-09-13 19:15] VITALS: TEMP 98.9
[2022-09-13 20:10] VITALS: BP 133/68
== END 2022-09-13 20:10 | disposition home or self-care (01) ==
LOC: ED 19:12
DX: S00.512A Abrasion of oral cavity, initial encounter (principal); X58.XXXA Exposure to other specified factors, initial encounter; Y92.89 Other specified places as the place of occurrence of the external cause
CPT/HCPCS: 99281

== ENCOUNTER 2022-10-09 12:04 | Outpatient (CLI) | payer OTHER | END 2022-10-09 20:36 | disposition home or self-care (01) | LOC: MRI 12:04 | PROVIDERS: ATTEND Psychiatry & Neurology Neurology | DX: R41.82 Altered mental status, unspecified (principal); I69.30 Unspecified sequelae of cerebral infarction ==

== ENCOUNTER 2022-12-07 08:19 | Outpatient (CLI) | payer OTHER | END 2022-12-07 19:28 | disposition home or self-care (01) | LOC: US 08:19 | PROVIDERS: ATTEND Specialist | DX: N13.8 Other obstructive and reflux uropathy (principal); N28.1 Cyst of kidney, acquired ==

== ENCOUNTER 2022-12-31 10:29 | Outpatient (CLI) | payer OTHER | END 2022-12-31 20:15 | disposition home or self-care (01) | LOC: RAD 10:29 | PROVIDERS: ATTEND Surgery | DX: R13.19 Other dysphagia (principal); R10.13 Epigastric pain ==

== ENCOUNTER 2023-07-16 10:17 | Outpatient (CLI) | payer OTHER | END 2023-07-16 19:02 | disposition home or self-care (01) | LOC: RESP 10:17 | PROVIDERS: ATTEND Nurse Practitioner Family | DX: I48.91 Unspecified atrial fibrillation (principal) ==

== ENCOUNTER 2023-10-28 16:15 | Outpatient (CLI) | payer OTHER | END 2023-10-28 19:50 | disposition home or self-care (01) | LOC: RAD 16:15 | PROVIDERS: ATTEND Nurse Practitioner Family | DX: R05.9 Cough, unspecified (principal) ==